=== PATIENT | male | born 1945 | race Caucasian/White ===

== ENCOUNTER 2017-07-04 02:28 | Day surgery (SDC) | payer OTHER ==
[~2017-07-04] VITALS: Ht 180.3 cm; Wt 96.0 kg
[~2017-07-04 02:28] MED LIST: AMLO5 PO; ASPI325EC PO; ATOR20 PO; BENHYD1012 PO; DUTA.5 PO; FINA5 PO; FLEC50 PO; GLIP2.5ER PO; HYDACE5 PO; HYDCHL25 PO; INSULANPEN SC; LISHYD1012 PO; LISI20 PO; LOSHYD100 PO; METF500 PO; METO25ER PO; METO50 PO; Multivitamin1 EAC1 PO; NITR.4SL SL; PANT40 PO; TRADJENTA5 MG PO; XARELTO20 MG PO
[2017-07-04] MEDS ORDERED: Hydrochloroth12.5 MG PO (06:34)
[2017-07-04] MEDS ORDERED: Isosorbide Mono10 MG PO (09:10)
== END 2017-07-04 12:50 | disposition home or self-care (01) ==
LOC: MHTC 02:28
PROC: 4A023N7 Measurement of Cardiac Sampling and Pressure, Left Heart, Percutaneous Approach (ICD-10-PCS; principal; 2017-07-04)
PROC: 02703ZZ Dilation of Coronary Artery, One Artery, Percutaneous Approach (ICD-10-PCS; principal; 2017-07-04)
PROC: B211YZZ Fluoroscopy of Multiple Coronary Arteries using Other Contrast (ICD-10-PCS; principal; 2017-07-04)
DX: I25.119 Atherosclerotic heart disease of native coronary artery with unspecified angina pectoris (principal); Z95.1 Presence of aortocoronary bypass graft; E11.9 Type 2 diabetes mellitus without complications; E78.5 Hyperlipidemia, unspecified; I10 Essential (primary) hypertension; Z82.49 Family history of ischemic heart disease and other diseases of the circulatory system
CPT/HCPCS: 82947; 92920; 92937; 93455; 99152; 99153; C1725; C1760; C1769; C1894; J1644; J2250; J3010; J7030; Q9967

== ENCOUNTER 2019-05-08 09:53 | Emergency (ER) | payer OTHER ==
[~2019-05-08] VITALS: Ht 180.3 cm; Wt 95.2 kg
[~2019-05-08 09:53] MED LIST changes: +Hydrochloroth12.5 MG PO; +Isosorbide Mono10 MG PO
[2019-05-08] MEDS ORDERED: IBUP800 PO (11:42)
== END 2019-05-08 11:44 | disposition home or self-care (01) ==
LOC: ER 09:53
DX: S86.911A Strain of unspecified muscle(s) and tendon(s) at lower leg level, right leg, initial encounter (principal); Z79.01 Long term (current) use of anticoagulants; I25.10 Atherosclerotic heart disease of native coronary artery without angina pectoris; E11.9 Type 2 diabetes mellitus without complications; I48.91 Unspecified atrial fibrillation; I10 Essential (primary) hypertension; Z88.5 Allergy status to narcotic agent; Z88.8 Allergy status to other drugs, medicaments and biological substances; Z79.4 Long term (current) use of insulin; Z79.899 Other long term (current) drug therapy; X58.XXXA Exposure to other specified factors, initial encounter
CPT/HCPCS: 93971; 99283-25

== ENCOUNTER 2020-04-09 18:13 | Emergency (ER) | payer OTHER ==
[~2020-04-09] VITALS: Ht 177.8 cm; Wt 93.0 kg
[~2020-04-09 18:13] MED LIST changes: +IBUP800 PO
[2020-04-09 19:12] LABS: BASOPHILS ABSOLUTE AUTO 0.03 K/mm3 (0.00-0.23); BASOPHILS PERCENT AUTO 0 % (0-2); EOSINOPHILS PERCENT AUTO 1 % (0-6); Hematocrit 42.6 % (37.0-53.0); Hemoglobin 14.4 g/dL (13.5-17.5); IMMATURE GRAN ABSOLUTE AUTO 0.02 K/mm3 (0.00-0.10); IMMATURE GRAN PERCENT AUTO 0 % (0-1); LYMPHOCYTES ABSOLUTE AUTO 1.25 K/mm3 (0.84-5.20); LYMPHOCYTES PERCENT AUTO 18 % (21-46); MONOCYTES ABSOLUTE AUTO 0.55 K/mm3 (0.16-1.47); MONOCYTES PERCENT AUTO 8 % (4-13); Mean Corpuscular HGB 28.4 pg (26.0-34.0); Mean Corpuscular HGB Conc 33.8 g/dL (31.5-36.5); Mean Corpuscular Volume 84 fL (80-100); Mean Platelet Volume 10.3 fL (9.1-12.4); NEUTROPHILS ABSOLUTE AUTO 4.98 K/mm3 (1.96-9.15); NEUTROPHILS PERCENT AUTO 72 % (41-73); Platelet Count 183 K/mm3 (150-400); RDW Coefficient Variation 12.6 % (11.7-14.2); RDW Standard Deviation 37.7 fL (35.1-46.3); Red Blood Cell Count 5.07 M/mm3 (4.30-5.90); White Blood Cell Count 6.93 K/mm3 (4.00-11.30)
[2020-04-09 19:34] LABS: Alanine Aminotransfer (ALT/SGP 48 U/L (12-78); Albumin/Globulin Ratio 1.2 (0.8-1.8); Alk Phos 92 U/L (50-136); Anion Gap 5 mmol/L (6-16); Aspartate Aminotrans (AST/SGOT 17 U/L (12-37); Bilirubin, Total 0.5 mg/dL (0.1-1.0); Blood Urea Nitrogen 22 mg/dL (8-24); CO2, Blood 29 mmol/L (21-32); Calcium, Blood 9.5 mg/dL (8.5-10.1); Chloride, Blood 106 mmol/L (98-108); Creatinine, Blood 1.22 mg/dL (0.60-1.20); Globulin, Blood 3.4 g/dL (2.2-4.0); Glomerular Filtration Rate >60 (60-); Glucose, Blood 157 mg/dL (70-99); Potassium, Blood 3.6 mmol/L (3.5-5.5); Sodium, Blood 140 mmol/L (136-145); Total Protein, Blood 7.4 g/dL (6.4-8.2); Troponin I <0.015 ng/mL (0.000-0.040)
[2020-04-09] MEDS ORDERED: BASAGLAR K100 UNIT/1 (20:40)
[2020-04-09] MEDS ORDERED: NOVOLOG FL100 UNIT/3 (20:41)
[2020-04-09] MEDS ORDERED: METO25ER PO (20:43)
[2020-04-09] MEDS ORDERED: METF500 PO (20:44)
[2020-04-09] MEDS ORDERED: FISH OIL (20:45)
[2020-04-09] MEDS ORDERED: ASCO500 PO (20:45)
[2020-04-09] MEDS ORDERED: FOLI400 PO (20:45)
[2020-04-09] MEDS ORDERED: ASPI81CH PO (20:46)
== END 2020-04-09 23:50 | disposition home or self-care (01) ==
LOC: ER 18:13
PROVIDERS: Physician Assistant
DX: H43.391 Other vitreous opacities, right eye (principal); Z79.4 Long term (current) use of insulin; Z79.01 Long term (current) use of anticoagulants; Z79.899 Other long term (current) drug therapy
CPT/HCPCS: 36415; 71046; 80053; 84484; 85025; 93005; 93010; 99284-25

== ENCOUNTER 2024-06-12 07:46 | Observation (INO) | payer OTHER ==
[~2024-06-12] VITALS: Ht 180.3 cm; Wt 93.9 kg
[~2024-06-12 07:46] MED LIST changes: +ASCO500 PO; +ASPI81CH PO; +BASAGLAR K100 UNIT/1; +FISH OIL; +FOLI400 PO; +NOVOLOG FL100 UNIT/3
[2024-06-12] MEDS ORDERED: FARXIGA5 MG PO (08:01)
[2024-06-12 08:22] LABS: BASOPHILS ABSOLUTE AUTO 0.03 K/mm3 (0.00-0.23); BASOPHILS PERCENT AUTO 1 % (0-2); EOSINOPHILS ABSOLUTE AUTO 0.09 K/mm3 (0.00-0.68); EOSINOPHILS PERCENT AUTO 2 % (0-6); Hematocrit 42.5 % (37.0-53.0); Hemoglobin 14.3 g/dL (13.5-17.5); IMMATURE GRAN ABSOLUTE AUTO 0.01 K/mm3 (0.00-0.10); IMMATURE GRAN PERCENT AUTO 0 % (0-1); LYMPHOCYTES ABSOLUTE AUTO 1.11 K/mm3 (0.84-5.20); LYMPHOCYTES PERCENT AUTO 22 % (21-46); MONOCYTES PERCENT AUTO 10 % (4-13); Mean Corpuscular HGB 28.7 pg (26.0-34.0); Mean Corpuscular HGB Conc 33.6 g/dL (31.5-36.5); Mean Corpuscular Volume 85 fL (80-100); Mean Platelet Volume 10.1 fL (9.1-12.4); NEUTROPHILS ABSOLUTE AUTO 3.35 K/mm3 (1.96-9.15); NEUTROPHILS PERCENT AUTO 66 % (41-73); Platelet Count 183 K/mm3 (150-400); RDW Coefficient Variation 12.9 % (11.7-14.2); RDW Standard Deviation 39.6 fL (35.1-46.3); Red Blood Cell Count 4.99 M/mm3 (4.30-5.90); White Blood Cell Count 5.09 K/mm3 (4.00-11.30)
[2024-06-12 08:23] LABS: Albumin, Blood 3.8 g/dL (3.4-5.0); Albumin/Globulin Ratio 1.1 (0.8-1.8); Bilirubin, Total 0.7 mg/dL (0.1-1.0); Bun/Creatinine Ratio 18.4 (12.0-20.0); Calcium, Blood 9.6 mg/dL (8.5-10.1); Creatinine, Blood 1.25 mg/dL (0.60-1.20); Globulin, Blood 3.4 g/dL (2.2-4.0); Potassium, Blood 3.8 mmol/L (3.5-5.5); Total Protein, Blood 7.2 g/dL (6.4-8.2)
[2024-06-12] MEDS ORDERED: FLU VACC TS2024-25(6MOS UP)/PF 45 MCG/0.5 ML SYRINGE IM PRN (10:00)
[2024-06-12] MEDS ORDERED: Nitroglycerin 0.4 MG SUBL SL PRN (10:30)
[2024-06-12] MEDS ORDERED: Insulin Human Lispro 100 Units/ML 3ML Syringe SC SCH (11:30)
[2024-06-12] MEDS ORDERED: Enoxaparin 40 MG/0.4 ML SYR SC SCH (13:00)
[2024-06-12 17:37] VITALS: BP 158/92
[2024-06-12] MEDS ORDERED: LOSA50 PO (17:51)
[2024-06-12] MEDS ORDERED: ATOR40TA (17:52)
--- NOTE | 2024-06-12 17:53 | NUR ---
pt arrived to room 340 via wheelchair from ED. he is a/ox4, pleasant and cooperative with care, follows commands well, denies pain at this time, reports last chest pain was this am, prior to ntg, lungs are clear t/o, resp even and unlabored, no cough noted, hrr, no edema noted, ppp+1, cap refill <3 sec, vs stable, afebrile, piv to lac site is clear and patent, btx4, abd flat soft nontender, voids without diff, skin c/w/d, archie, karissa, oriented to room layout and call sytem, call light in reach.
[2024-06-12] MEDS ORDERED: NAPR220 PO (17:54)
[2024-06-12 19:36] VITALS: BP 155/82
[2024-06-12] MEDS ORDERED: Atorvastatin 40 MG Tab PO SCH (21:00)
[2024-06-12] MEDS ORDERED: Finasteride 5 MG Tab PO SCH (21:00)
[2024-06-12] MEDS ORDERED: AmLODIPine Besylate 5 MG Tab PO SCH (21:00)
[2024-06-12] MEDS ORDERED: Sennosides 8.6 MG Tab PO SCH (21:00)
[2024-06-12] MEDS ORDERED: Enoxaparin 100 MG/ML 1ML SYR SC SCH (21:00)
[2024-06-12] MEDS ORDERED: Atorvastatin 10 MG Tab PO SCH (21:00)
[2024-06-12] MEDS ORDERED: Insulin Glargine-Yfgn 100 Unit/mL 3 ML SYR SC SCH (21:00)
[2024-06-13 03:22] VITALS: BP 142/90
--- NOTE | 2024-06-13 04:02 | NUR ---
SHIFT SUMMARY PATIENT HAD NO ACUTE CHANGES. AXOX 4 AND INDEPENDENT IN ROOM. DENIES CHEST PAIN, SOB, AND N/V. VSS/AFEBRILE. NPO FOR STRESS TEST. PIV INTACT. TELE MONITOR NSR 64. COOPERATIVE WITH CARE. CALL LIGHT IN REACH. BED IN LOWEST POSITION. WILL CONTINUE TO MONITOR UNTIL DAY SHIFT NURSE ASSUMES CARE.
[2024-06-13] MEDS ORDERED: Pantoprazole Sodium 40 MG Tab PO SCH (06:00)
[2024-06-13 06:37] LABS: BASOPHILS ABSOLUTE AUTO 0.03 K/mm3 (0.00-0.23); BASOPHILS PERCENT AUTO 0 % (0-2); EOSINOPHILS ABSOLUTE AUTO 0.11 K/mm3 (0.00-0.68); EOSINOPHILS PERCENT AUTO 1 % (0-6); Hematocrit 43.9 % (37.0-53.0); Hemoglobin 14.6 g/dL (13.5-17.5); IMMATURE GRAN ABSOLUTE AUTO 0.03 K/mm3 (0.00-0.10); IMMATURE GRAN PERCENT AUTO 0 % (0-1); LYMPHOCYTES ABSOLUTE AUTO 1.33 K/mm3 (0.84-5.20); LYMPHOCYTES PERCENT AUTO 17 % (21-46); MONOCYTES ABSOLUTE AUTO 0.63 K/mm3 (0.16-1.47); MONOCYTES PERCENT AUTO 8 % (4-13); Mean Corpuscular HGB 27.9 pg (26.0-34.0); Mean Corpuscular HGB Conc 33.3 g/dL (31.5-36.5); Mean Corpuscular Volume 84 fL (80-100); Mean Platelet Volume 10.4 fL (9.1-12.4); NEUTROPHILS ABSOLUTE AUTO 5.82 K/mm3 (1.96-9.15); NEUTROPHILS PERCENT AUTO 73 % (41-73); Platelet Count 195 K/mm3 (150-400); RDW Coefficient Variation 12.8 % (11.7-14.2); RDW Standard Deviation 39.2 fL (35.1-46.3); Red Blood Cell Count 5.23 M/mm3 (4.30-5.90); White Blood Cell Count 7.95 K/mm3 (4.00-11.30)
[2024-06-13 07:04] LABS: Albumin, Blood 3.8 g/dL (3.4-5.0); Albumin/Globulin Ratio 1.1 (0.8-1.8); Bilirubin, Total 0.8 mg/dL (0.1-1.0); Bun/Creatinine Ratio 17.5 (12.0-20.0); Calcium, Blood 9.4 mg/dL (8.5-10.1); Creatinine, Blood 1.26 mg/dL (0.60-1.20); Globulin, Blood 3.4 g/dL (2.2-4.0); Potassium, Blood 3.9 mmol/L (3.5-5.5); Total Protein, Blood 7.2 g/dL (6.4-8.2)
[2024-06-13 07:49] VITALS: BP 158/90
--- NOTE | 2024-06-13 08:21 | NUR ---
pt up ambulating in room, was told by [place] he can eat breakfast except for caffein then just water, test will be at 1430, a/ox4, pleasant and cooperative with care, follows commands well, denies any pain since around 9am yesterday, lungs are clear t/o, resp even and unlabored, no cough noted, on r/a, hrr, tele in place running sr per monitor, see strip, no edema noted, ppp+1, cap refill <3 sec, vs stable, afebrile, piv site is clear and patent, btx4, abd flat soft nontender, voids without diff, skin c/w/d, maew, gait steady, karissa, call light in reach.
--- NOTE | 2024-06-13 08:50 | NUR ---
pt doesn't want to wait until 1430 to have stress test, he states he hasn't had chest pain since 09am yesterday, feels fine and wants to go home, asked him to let me call and speak with him first, he was agreeable, notified Dr. Dasilva, he came to see him, said to go ahead and let him go ama, he's feeling ok. pt is very cooperative and not any other problem other than he feels he's ok. he was informed of risks, signed ama paper and left via ambulation after allowing nurse to remove his iv. he took his belongings.
[2024-06-13] MEDS ORDERED: Enoxaparin 40 MG/0.4 ML SYR SC SCH (09:00)
[2024-06-13] MEDS ORDERED: HydroCHLOROthiazide 25 mg Tab PO SCH (09:00)
[2024-06-13] MEDS ORDERED: Metoprolol Succinate 25 MG TABCR PO SCH (09:00)
[2024-06-13] MEDS ORDERED: Insulin Glargine-Yfgn 100 Unit/mL 3 ML SYR SC SCH (09:00)
[2024-06-13] MEDS ORDERED: Aspirin 81 MG Chew PO SCH (09:00)
== END 2024-06-13 09:00 | disposition left against medical advice (07) ==
LOC: ER 07:46 → ERHOLD 07:47 → MEDS 17:27
PROVIDERS: Emergency Medicine; ADMIT Hospitalist
DX: I25.118 Atherosclerotic heart disease of native coronary artery with other forms of angina pectoris (principal); E11.9 Type 2 diabetes mellitus without complications; I10 Essential (primary) hypertension; I48.91 Unspecified atrial fibrillation; Z79.4 Long term (current) use of insulin; Z79.84 Long term (current) use of oral hypoglycemic drugs; Z79.899 Other long term (current) drug therapy; Z88.5 Allergy status to narcotic agent; Z88.8 Allergy status to other drugs, medicaments and biological substances; Z95.1 Presence of aortocoronary bypass graft
CPT/HCPCS: 36415; 71045; 78452; 80053; 82947; 84484; 85025; 93005; 93010; 93306; 96372; 99285-25; A9270; A9500; G0378; J1650; J1815